=== PATIENT | male | born 1965 | race Caucasian/White ===

== ENCOUNTER 2021-03-29 08:36 | Emergency (ER) | payer MEDICARE ==
[~2021-03-29] VITALS: Ht 180.3 cm; Wt 101.3 kg
[2021-03-29] MEDS ORDERED: ATORVASTATIN CA80 MG PO (09:04)
[2021-03-29] MEDS ORDERED: ZETIA10 MG PO (09:04)
[2021-03-29] MEDS ORDERED: CLOPIDOGREL75 MG PO (09:05)
[2021-03-29] MEDS ORDERED: OMEPRAZOLE10 MG PO (09:05)
[2021-03-29] MEDS ORDERED: WARFARIN3 MG PO (09:05)
[2021-03-29] MEDS ORDERED: REPATHA140 MG/ML IM (09:06)
[2021-03-29 09:13] LABS: URINE BILIRUBIN - DIPSTICK NEGATIVE (NEGATIVE); URINE BLOOD DIPSTICK NEGATIVE (NEGATIVE); URINE COLOR YELLOW; URINE GLUCOSE - DIPSTICK NEGATIVE (NEGATIVE); URINE KETONE TRACE mg/dL (NEGATIVE); URINE LEUK ESTERASE NEGATIVE (NEGATIVE); URINE PH 5.5 (4.5-8.0); URINE PROTEIN - DIPSTICK NEGATIVE (NEG-TRACE); URINE SPECIFIC GRAVITY 1.025; URINE UROBILINOGEN - DIPSTICK 0.2 E.U./dL (0.2)
[2021-03-29 09:19] LABS: URINE NITRITE - DIPSTICK NEGATIVE (Negative)
[2021-03-29 10:08] LABS: HEMOGLOBIN 16.8 g/dl (14.0-18.0); IMMATURE GRANULOCYTES 0.2 % (0.0-5.0); MEAN CELL VOLUME 94.1 fL CALC (80.0-100.0); MEAN CORPUSCULAR HGB CONC 32.9 g/dL CAL (32.0-36.0); NEUT# 4.23 thou/uL (1.82-7.42); RED BLOOD COUNT 5.42 mill/uL (4.70-6.10); RED CELL DISTRI WIDTH 12.4 % (11.5-15.5)
[2021-03-29 10:15] LABS: INTERNATIONAL NORMALIZED RATIO 1.7 RATIO (0.7-1.3); PROTHROMBIN TIME 17.3 SECONDS (9.0-12.5)
[2021-03-29 10:20] LABS: ALBUMIN 4.5 g/dL (3.2-5.0); ALKALINE PHOSPHATASE 86 u/l (38-126); ANION GAP 12 (6-22 (CALC)); BILIRUBIN, TOTAL 0.8 mg/dL (0.0-1.4); BUN 19 mg/dL (9-20); BUN/CREATININE RATIO 15 (12-20 (CALC)); CARBON DIOXIDE 29 mmol/l (22-30); CHLORIDE 102 mmol/l (95-108); CREATININE 1.2 mg/dL (0.7-1.3); GFR > 60 ML/MIN (>=60 (CALC)); GFR FOR AFR.AMER. > 60 ML/MIN (>=60 (CALC)); POTASSIUM 4.1 mmol/l (3.5-5.1); SGOT/AST 58 u/l (17-59); SODIUM 139 mmol/l (137-146); TOTAL PROTEIN 8.6 g/dL (6.3-8.2)
[2021-03-29 10:31] LABS: MYOGLOBIN 49 ng/mL (0 - 121)
[2021-03-29] MEDS ORDERED: CYCLOBENZAPRINE10 MG PO (12:20)
[2021-03-29] MEDS ORDERED: LORTAB 1010 MG PO (12:20)
[2021-03-29 12:45] VITALS: BP 143/94
== END 2021-03-29 12:45 | disposition home or self-care (01) ==
LOC: ED 08:36
PROVIDERS: Emergency Medicine
DX: M47.816 Spondylosis without myelopathy or radiculopathy, lumbar region (principal); N50.1 Vascular disorders of male genital organs; D68.32 Hemorrhagic disorder due to extrinsic circulating anticoagulants; T45.515A Adverse effect of anticoagulants, initial encounter; I25.10 Atherosclerotic heart disease of native coronary artery without angina pectoris; I25.2 Old myocardial infarction; D68.9 Coagulation defect, unspecified; Z79.01 Long term (current) use of anticoagulants
CPT/HCPCS: Q9967

== ENCOUNTER 2023-04-29 21:40 | Emergency (ER) | payer MEDICARE ==
[~2023-04-29] VITALS: Ht 180.3 cm; Wt 89.0 kg
[~2023-04-29 21:40] MED LIST: ATORVASTATIN CA80 MG PO; CLOPIDOGREL75 MG PO; CYCLOBENZAPRINE10 MG PO; LORTAB 1010 MG PO; OMEPRAZOLE10 MG PO; REPATHA140 MG/ML IM; WARFARIN3 MG PO; ZETIA10 MG PO
[2023-04-29 22:00] VITALS: BP 151/100
[2023-04-29 22:15] VITALS: BP 163/99
[2023-04-29 23:00] VITALS: BP 160/103
[2023-04-29 23:05] VITALS: BP 161/100
[2023-04-29 23:15] VITALS: BP 161/99
[2023-04-29 23:30] VITALS: BP 158/97
[2023-04-30] VITALS (8 sets, daily range): BP systolic 144–153; BP diastolic 88–104
[2023-04-30 00:10] LABS: BASO% 0.5 % (0-3); EOS% 3.3 % (0-8); IMMATURE GRANULOCYTES 0.3 % (0.0-5.0); LYMPH% 24.5 % (15-41); MEAN CELL VOLUME 92.1 fL CALC (80.0-100.0); MEAN CORPUSCULAR HGB 29.8 pG CALC (26.0-32.0); MEAN CORPUSCULAR HGB CONC 32.4 g/dL CAL (32.0-36.0); NEUT# 4.02 thou/uL (1.82-7.42); NEUT% 62.4 % (42-76); RED BLOOD COUNT 4.8 mill/uL (4.70-6.10); RED CELL DISTRI WIDTH 13.7 % (11.5-15.5)
[2023-04-30 00:16] LABS: HEMATOCRIT 44.2 % (39.0-50.0); HEMOGLOBIN 14.3 g/dl (14.0-18.0)
[2023-04-30 00:18] LABS: ALBUMIN 4.3 g/dL (3.2-5.0); ANION GAP 13 (6-22 (CALC)); BUN 15 mg/dL (9-20); BUN/CREATININE RATIO 14 (12-20 (CALC)); CARBON DIOXIDE 26 mmol/l (22-30); CHLORIDE 109 mmol/l (95-108); CREATININE 1.1 mg/dL (0.7-1.3); GFR FOR AFR.AMER. > 60 ML/MIN (>=60 (CALC)); GFR OTHER RACES > 60 ML/MIN (>=60 (CALC)); POTASSIUM 3.7 mmol/l (3.5-5.1); SGOT/AST 35 u/l (17-59); SODIUM 144 mmol/l (137-146); TOTAL PROTEIN 7.3 g/dL (6.3-8.2)
[2023-04-30 00:27] LABS: ALKALINE PHOSPHATASE 161 u/l (38-126); BILIRUBIN, TOTAL 0.3 mg/dL (0.2-1.3)
[2023-04-30] MEDS ORDERED: CYCLOBENZAPRINE10 MG PO (01:52)
[2023-04-30] MEDS ORDERED: PERCOCET 5/325M1 TAB PO (01:52)
== END 2023-04-30 02:40 | disposition home or self-care (01) ==
LOC: ED 21:40
PROVIDERS: Emergency Medicine
DX: M62.838 Other muscle spasm (principal); I25.10 Atherosclerotic heart disease of native coronary artery without angina pectoris; I25.2 Old myocardial infarction; Z95.5 Presence of coronary angioplasty implant and graft
CPT/HCPCS: Q9967